=== PATIENT | female | born 1970 | race Caucasian/White ===

== ENCOUNTER 2022-07-11 23:11 | Emergency (ER) | payer SELFPAY ==
[2022-07-11] MEDS ORDERED: Flumazenil 0.1 MG/ML 5 ML MDV IV ONE (23:12)
[2022-07-11] MEDS ORDERED: ePHEDrine 50 MG/ML SDV IV ONE (23:12)
[2022-07-11] MEDS ORDERED: Naloxone 0.4 MG/ML SDV IV ONE (23:12)
[2022-07-11] MEDS ORDERED: Norepinephrine Bit/D5W Premix 4 MG in Premix Bag 1 BAG IV SCH (23:26)
[2022-07-11] MEDS: Sodium Chloride 0.9% 1,000 ML IV ONE (23:36)
[2022-07-11 23:39] LABS: BASE EXCESS VENOUS,POC 2 mmol/L (-2 - 3+); PCO2 VENOUS,POC 57 mmHg (41-51); PH VENOUS,POC 7.32 pH Units (7.32-7.43)
[2022-07-11 23:45] LABS: ESTIMATED GFR 49 mL/min (>60)
[2022-07-11 23:59] LABS: ACETAMINOPHEN < 2 ug/mL (<2)
[2022-07-12] MEDS ORDERED: Sodium Chloride 0.9% 1,000 ML IV ONE (00:34)
[2022-07-12] MEDS: Sodium Chloride 0.9% 1,000 ML IV ONE (00:35)
== END 2022-07-12 01:00 ==
LOC: FB.ED 23:11
DX: T42.4X2A Poisoning by benzodiazepines, intentional self-harm, initial encounter (principal); I95.9 Hypotension, unspecified; R79.82 Elevated C-reactive protein (CRP); R40.1 Stupor; R94.4 Abnormal results of kidney function studies; Z20.822 Contact with and (suspected) exposure to COVID-19
CPT/HCPCS: 36415; 51702; 70450; 71045; 80053; 80143; 80179; 80307; 81001; 81025; 83605; 84443; 84484; 85025; 86140; 87635; 93005; 96365; 96366; 96375; 96376; 99285; J2310; J3490; J7030; U0002